=== PATIENT | female | born 1990 | race Caucasian/White ===

== ENCOUNTER 2020-10-08 07:01 | Outpatient (REF) | payer OTHER, SELFPAY ==
[2020-10-08 07:20] LABS: COVID-19 Test Negative (Negative)
== END 2020-10-08 07:02 | disposition home or self-care (01) ==
LOC: HO.LAB 07:01
PROVIDERS: Visit Provider Internal Medicine
DX: Z20.822 Contact with and (suspected) exposure to COVID-19 (principal)
CPT/HCPCS: 36415; 87635; C9803

== ENCOUNTER 2023-03-17 07:59 | Outpatient (AMB) | payer BC, SELFPAY ==
--- NOTE | 2023-03-17 08:06 | AM.OFFWIN_ITS ---
Intake Vital Signs 03/17/23 08:07 Height 5 ft 7 in BP 118/66 Blood Pressure Location Lt brachial Position Sitting Pulse 98 Pulse Source Pulse Oximeter Temp 98.2 F Temp Source Oral Pulse Oximetry (%) 97 Oxygen Delivery Method Room Air Intake Visit Reasons: [id number][place] [phone] Intake Note: pt is here for c/o sinus and congestion. pcp states she had bacterial conguctivitis in both eyes Patient Tobacco Use Status: Never used Tobacco Allergies No Known Allergies Allergy (Verified 03/17/23 08:19) Do you need a note to return to daycare/school/sports/work: Yes HPI [place] [id number][place] [phone] HPI Details 32-year-old female presents to the office for a sick visit. Patient's infant child was diagnosed with conjunctivitis and this was followed with her getting the same symptoms. She has been using drops prescribed by the primary care provider. However her symptoms are not resolving. Continues to have increased tearing and discharge. Has not been wearing contact lenses for the past month. [facility] Social History Patient Tobacco Use Status: Never used Tobacco Physical Exam Vital Signs: Last Vital Signs Temp 98.2 F 03/17/23 08:07 Pulse 98 03/17/23 08:07 BP 118/66 03/17/23 08:07 Pulse Ox 97 03/17/23 08:07 Oxygen Delivery Method Room Air 03/17/23 08:07 HEENT Other: Left eye: Bulbar conjunctival congestion, tarsal conjunctiva is congested. Corneas clear. No digital tenderness. No fluoro uptake. Assessment & Plan Assessment & Plan (1) Conjunctivitis: Code(s): H10.9 - Unspecified conjunctivitis Plan: Erythromycin ophthalmic ointment twice a day. If symptoms do not improve by the weekend, patient was encouraged to follow-up here on Monday. Coding Level of Care Code New Pt Level 3 (73756) Diagnoses Conjunctivitis H10.9
[2023-03-17 08:07] VITALS: BP 118/66; PULSE 98; TEMP 36.8; O2SAT 97
== END 2023-03-17 08:37 | disposition home or self-care (01) ==
PROVIDERS: Visit Provider Internal Medicine
DX: H10.9 Unspecified conjunctivitis (principal)
CPT/HCPCS: 99203